=== PATIENT | male | born 1950 ===

== ENCOUNTER 2016-05-28 07:01 | Emergency (ER) | payer OTHER ==
[2016-05-28 07:02] VITALS: BMI 28.3
[2016-05-28 07:30] VITALS: RESP 18
--- NOTE | 2016-05-28 07:52 | ED PDOC ---
Arrival/HPI - General Chief Complaint: Lower Extremity Problem/Injury Time Seen by Provider: 05/28/16 07:43 Historian: Patient - History of Present Illness Narrative History of Present Illness (Text): 05/28/16 07:48 A 66 year old male presents to the emergency department complaining of right knee pain for 7 days. Patient reports his pain began after he turned and heard a "pop". Patient states he has had pain with palpation and ambulation around the anterior and lateral knee since then. He states the same thing happened yesterday which worsened his symptom. Patient denies any fever, nausea, vomiting , diarrhea, abdominal pain, urinary symptoms, chest pain, shortness of breath or any other complaints. PMD: Dr. Llanes Time/Duration: Other (7 days) Symptom Course: Worsening Quality: Other Context: Home Past Medical History - Provider Review Nursing Documentation Reviewed: Yes - Infectious Disease Hx of Infectious Diseases: None - Tetanus Immunization Tetanus Immunization: Unknown - Cardiac Hx Pacemaker: No - Pulmonary Hx Respiratory Disorders: No - Neurological Hx Parkinson's Disease: Yes Hx Vertigo: Yes - HEENT Hx HEENT Disorder: No - Renal Hx Renal Disorder: Yes Hx Kidney Stones: Yes - Endocrine/Metabolic Hx Endocrine Disorders: Yes Hx Diabetes Mellitus Type 2: Yes - Hematological/Oncological Hx Blood Transfusions: No Hx Blood Transfusion Reaction: No - Integumentary Hx Dermatological Disorder: No - Musculoskeletal/Rheumatological Hx Musculoskeletal Disorders: No - Gastrointestinal Hx Gastrointestinal Disorders: No - Genitourinary/Gynecological Hx Genitourinary Disorders: No - Psychiatric Hx Emotional Abuse: No Hx Physical Abuse: No Hx Substance Use: No - Surgical History Hx Musculoskeletal Surgery: Yes (b/l knee's 13 yrs ago) - Anesthesia Hx Anesthesia Reactions: No Hx Malignant Hyperthermia: No - Suicidal Assessment Feels Threatened In Home Enviroment: No Family/Social History - Physician Review Nursing Documentation Reviewed: Yes Family/Social History: No Known Family HX Smoking Status: Never Smoked Hx Alcohol Use: Yes (ON OCCASION) Hx Substance Use: No Allergies/Home Meds Allergies/Adverse Reactions: Allergies Iodine and Iodide Containing Produc Allergy (Severe, Verified 05/28/16 07:30) ANAPHYLAXIS Penicillins Allergy (Severe, Verified 05/28/16 07:30) ANAPHYLAXIS shrimp Allergy (Severe, Verified 05/28/16 07:30) ANAPHYLAXIS lobster Allergy (Severe, Uncoded 05/28/16 07:30) SWELLING Home Medications: Home Meds Medication Instructions Recorded Confirmed Allopurinol [Zyloprim] 300 mg PO DAILY 10/25/14 04/04/15 Rasagiline Mesylate [Azilect] 1 mg PO HS 10/25/14 04/04/15 Metformin HCl [Metformin] 1,000 mg PO BID 12/14/14 04/04/15 Ascorbic Acid [Vitamin C 500 mg 500 mg PO DAILY 04/03/15 04/04/15 Tab] Cholecalciferol [Vitamin D 1000 IU] 1,000 mg PO DAILY 04/03/15 04/04/15 Cyanocobalamin [Vitamin B12 100 100 mcg PO DAILY 04/03/15 04/04/15 mcg Tab] Omeprazole 40 mg PO QAM 04/03/15 04/04/15 Mesalamine [Canasa] 1,000 mg [place] HS 04/04/15 04/04/15 Physical Exam - Physical Exam Narrative Physical Exam (Text): - Review of Systems Constitutional: Normal. absent: Fatigue, Weight Change, Fevers Eyes: Normal ENT: Normal Respiratory: Normal absent: SOB, Cough, Sputum Cardiovascular: Normal absent: Chest pain, Palpitations, Syncope Gastrointestinal: Normal absent: Abdominal pain, Diarrhea, Nausea, Vomiting Genitourinary: Normal. absent: Dysuria, Frequency, Hematuria Musculoskeletal: (+) Right knee pain absent: Arthralgias, Back Pain, Neck Pain Skin: Normal Neurological: Normal absent: Focal Weakness Endocrine: Normal Hemo/Lymphatic: Normal Psychiatric: Normal - Physical exam Patient appears age appropriate, speaking full sentences without difficulty - Systems Exam Head: Present: Atraumatic, Normocephalic Pupils: Present: PERRL Extraocular Muscles: Present: EOMI Conjunctiva: Present: Normal Mouth: Present: Moist Mucous Membranes Neck: Present: Normal Range of Motion. No: MIDLINE TENDERNESS, Paraspinal Tenderness Respiratory/Chest: Present: Clear to Auscultation, Good Air Exchange. No: Respiratory Distress, Accessory Muscle Use, Tachypneic Cardiovascular: Present: Regular Rate and Rhythm, Normal S1, S2, Peripheral Pulses Present. No: Murmurs Abdomen: Present: Normal Bowel Sounds, No: Tenderness, Peritoneal Signs, Rebound, Guarding, Distention Back: Present: Normal Inspection. No: Midline Tenderness, Paraspinal Tenderness Upper Extremity: Present: Normal Inspection. No: Cyanosis, Edema Lower Extremity: Present: Patient is ambulating, Tenderness over the patella, Negative anterior and posterior drawer test. No: Edema, Right knee swelling, Lower extremity asymmetry, Suspicion for DVT, Thigh tenderness, Calf tenderness Neurological: Present: GCS=15, Speech Normal, cranial nerves II through XII fully intact with no cerebellar abnormality, neuro-sensory fully intact. No focal neurological deficits. Skin: Present: Warm, Dry, Normal Color. No: Rashes Lymphatic: Present: OX3, NI, NC Psychiatric: Present: Alert, Oriented x 3, Normal Insight, Normal Concentration Vital Signs Reviewed: Yes Vital Signs Temp Pulse Resp BP Pulse Ox 05/28/16 08:55 97.8 F 80 18 118/76 99 05/28/16 07:24 97.4 F L 72 18 150/76 98 Temperature: Afebrile Blood Pressure: Normal Pulse: Regular Respiratory Rate: Normal Appearance: Positive for: Well-Appearing, Non-Toxic, Comfortable Pain Distress: None Mental Status: Positive for: Alert and Oriented X 3 Medical Decision Making ED Course and Treatment: 05/28/16 07:48 Impression: A 66 year old male with right knee pain, worse with palpation and ambulation. On exam, tenderness over patella. No suspicion for DVT. Plan: -- Right knee xray -- Toradol -- Reassess and disposition Progress Notes: 05/28/16 08:43 Front Tender : James Amaya MD PROCEDURE: Right Knee Radiographs. HISTORY: Pain COMPARISON:None. FINDINGS: BONES:Normal. No fracture. JOINTS:Tricompartmental osteoarthritis. No articular erosion. JOINT EFFUSION:None. OTHER FINDINGS:None. IMPRESSION: No acute fracture. Tricompartmental osteoarthritis. had an extensive d/w pt that although xrays are negative for any acute bony abnormality, it is still very important to fu with pmd and ortho specialist for further w/u and testing such as MRI to r/o any ligamentous/tendenous/meniscal injury. Pt verbalized full understanding of above discussion. Pt states he understands to return to the ER right away for new or worsening symptoms or for inability to f/u with PMD or specialist as instructed. Patient states that he fully agrees with and understands discharge instructions. States that he agrees with the plan and disposition. Verbalized and repeated discharge instructions and plan. I have given the patient opportunity to ask any additional questions. - RAD Interpretation Radiology Orders: 05/28/16 07:42 KNEE RIGHT 2 VIEWS (AP & LAT) [RAD] Stat - Medication Orders Current Medication Orders: Discontinued Medications Ketorolac Tromethamine (Toradol) 15 mg IM STAT STA Stop: 05/28/16 07:45 Last Admin: 05/28/16 08:05 Dose: 15 MG IM Administration Charges Document 05/28/16 08:05 [facility] (Rec: 05/28/16 08:05 [id number]) Injection Site MAR Injection Site Left Arm Charges for Administration # of IM Administrations 1 - Scribe Statement The provider has reviewed the documentation as recorded by the Scribe Nora Talavera Provider Scribe Attestation: All medical record entries made by the Scribe were at my direction and personally dictated by me. I have reviewed the chart and agree that the record accurately reflects my personal performance of the history, physical exam, medical decision making, and the department course for this patient. I have also personally directed, reviewed, and agree with the discharge instructions and disposition. Disposition/Present on Arrival - Present on Arrival Any Indicators Present on Arrival: No History of DVT/PE: No History of Uncontrolled Diabetes: No Urinary Catheter: No History of Decub. Ulcer: No History Surgical Site Infection Following: None - Disposition Have Diagnosis and Disposition been Completed?: Yes Diagnosis: Knee pain Disposition: HOME/ ROUTINE Disposition Time: 08:54 Patient Plan: Discharge Condition: GOOD Discharge Instructions (ExitCare): Knee Pain (ED), Arthralgia (ED) Additional Instructions: PLEASE RETURN TO THE EMERGENCY DEPARTMENT FOR NEW OR WORSENING SYMPTOMS. RETURN RIGHT AWAY IF YOU CANNOT FOLLOW UP WITH YOUR PRIMARY CARE DOCTOR, CLINIC, OR SPECIALIST IN 1-2 DAYS. Please take [id number] Motrin or Tylenol for pain Referrals: Maverick Llanes MD [Primary Care Provider] - Follow up with primary Aroldo Lino DO [Staff Provider] - Follow up with primary Patel Carvajal III, MD [Medical Doctor] - Follow up with primary Forms: WORK NOTE
--- NOTE | 2016-05-28 08:41 | RAD ---
PROCEDURE: Right Knee Radiographs. HISTORY: Pain COMPARISON: None. FINDINGS: BONES: Normal. No fracture. JOINTS: Tricompartmental osteoarthritis. No articular erosion. JOINT EFFUSION: None. OTHER FINDINGS: None. IMPRESSION: No acute fracture. Tricompartmental osteoarthritis.
[2016-05-28 09:13] VITALS: BP 118/76; PULSE 80; TEMP 97.8; O2SAT 99
== END 2016-05-28 08:55 | disposition home or self-care (01) ==
LOC: ED 07:01
DX: M25.561 Pain in right knee (principal)
CPT/HCPCS: 73560; 96372; 99283; J1885

== ENCOUNTER 2017-09-03 17:36 | Emergency (ER) | payer OTHER, MEDICARE ==
--- NOTE | 2017-09-03 18:17 | ED PDOC ---
Arrival/HPI - General Historian: Patient, Spouse - History of Present Illness Time/Duration: > week Symptom Onset: Gradual Severity Level: 6 <Silva Thurman - Last Filed: 09/05/17 19:02> <Ino Cleaning - Last Filed: 09/05/17 19:37> - General Chief Complaint: Lower Extremity Problem/Injury Time Seen by Provider: 09/03/17 18:00 - History of Present Illness Narrative History of Present Illness (Text): 09/03/17 18:12 Patient is a 67 year old male with past medical history of Diabetes mellitus, parkinson's disease, gout presents to the Emergency department for right lower extremity pain and swelling. Patient had recent right knee replacement in 2017 and has been going to physical therapy 2x a week. He reports that last week he started to experience right sided ankle pain that radiates to the right calf and swelling that has been progressively getting worse. He states that the pain is 6/10 on the pain scale, intermittent in nature. Worse with ambulation. He has tried taking aleeve and cold compresses with no relief. (Silva Thurman) Past Medical History - Infectious Disease Hx of Infectious Diseases: None - Tetanus Immunization Tetanus Immunization: Unknown - Cardiac Hx Pacemaker: No - Pulmonary Hx Respiratory Disorders: No - Neurological Hx Parkinson's Disease: Yes Hx Vertigo: Yes - HEENT Hx HEENT Disorder: No - Renal Hx Renal Disorder: Yes Hx Kidney Stones: Yes - Endocrine/Metabolic Hx Endocrine Disorders: Yes Hx Diabetes Mellitus Type 2: Yes - Hematological/Oncological Hx Blood Transfusions: No Hx Blood Transfusion Reaction: No - Integumentary Hx Dermatological Disorder: No - Musculoskeletal/Rheumatological Hx Musculoskeletal Disorders: No - Gastrointestinal Hx Gastrointestinal Disorders: No - Genitourinary/Gynecological Hx Genitourinary Disorders: No - Psychiatric Hx Emotional Abuse: No Hx Physical Abuse: No Hx Substance Use: No - Surgical History Hx Musculoskeletal Surgery: Yes (b/l knee's 13 yrs ago) - Anesthesia Hx Anesthesia Reactions: No Hx Malignant Hyperthermia: No - Suicidal Assessment Feels Threatened In Home Enviroment: No <Silva Thurman - Last Filed: 09/05/17 19:02> Family/Social History Family/Social History: Unknown Family HX Smoking Status: Never Smoked Hx Alcohol Use: Yes (ON OCCASION) Hx Substance Use: No <Silva Thurman - Last Filed: 09/05/17 19:02> Allergies/Home Meds <Silva Thurman - Last Filed: 09/05/17 19:02> <Ino Cleaning - Last Filed: 09/05/17 19:37> Allergies/Adverse Reactions: Allergies Iodine and Iodide Containing Produc Allergy (Severe, Verified 05/28/16 07:30) ANAPHYLAXIS Penicillins Allergy (Severe, Verified 05/28/16 07:30) ANAPHYLAXIS shrimp Allergy (Severe, Verified 05/28/16 07:30) ANAPHYLAXIS lobster Allergy (Severe, Uncoded 05/28/16 07:30) SWELLING Home Medications: Home Meds Medication Instructions Recorded Confirmed Allopurinol [Zyloprim] 300 mg PO DAILY 10/25/14 09/03/17 Rasagiline Mesylate [Azilect] 1 mg PO HS 10/25/14 09/03/17 Metformin HCl [Metformin] 1,000 mg PO BID 12/14/14 09/03/17 Ascorbic Acid [Vitamin C 500 mg 500 mg PO DAILY 04/03/15 09/03/17 Tab] Cholecalciferol [Vitamin D 1000 IU] 1,000 mg PO DAILY 04/03/15 09/03/17 Cyanocobalamin [Vitamin B12 100 100 mcg PO DAILY 04/03/15 09/03/17 mcg Tab] Omeprazole 40 mg PO QAM 04/03/15 09/03/17 Mesalamine [Canasa] 1,000 mg [place] HS 04/04/15 09/03/17 Carbidopa/Levodopa [Rytary ER 3 cap PO TID 09/03/17 09/03/17 23.75 mg-95 mg Cap] GlipiZIDE [Glucotrol] 5 mg PO HS 09/03/17 09/03/17 Physical Exam Vital Signs Reviewed: Yes Temperature: Afebrile Blood Pressure: Normal Pulse: Regular Respiratory Rate: Normal Appearance: Positive for: Well-Appearing, Comfortable Pain Distress: Mild Mental Status: Positive for: Alert and Oriented X 3 - Systems Exam Head: Present: Atraumatic, Normocephalic Pupils: Present: PERRL Extroacular Muscles: Present: EOMI Conjunctiva: Present: Normal Mouth: Present: Moist Mucous Membranes Neck: Present: Normal Range of Motion Respiratory/Chest: Present: Clear to Auscultation, Good Air Exchange. No: Respiratory Distress, Accessory Muscle Use Cardiovascular: Present: Regular Rate and Rhythm, Normal S1, S2 Abdomen: Present: Normal Bowel Sounds. No: Tenderness Upper Extremity: Present: Normal Inspection Lower Extremity: Present: NORMAL PULSES, Other (Right lower extremity tenderness , +edema, warm to touch) Skin: Present: Warm, Dry, Normal Color Psychiatric: Present: Alert, Oriented x 3 <Silva Thurman - Last Filed: 09/05/17 19:02> Vital Signs Temp Pulse Resp BP Pulse Ox 09/03/17 21:19 97.8 F 77 18 124/73 99 09/03/17 20:36 97.8 F 77 18 124/73 99 09/03/17 20:27 78 17 135/80 99 09/03/17 18:17 98.7 F 87 18 138/84 99 09/03/17 18:05 97.9 F 83 18 138/84 100 Medical Decision Making <Silva Thurman - Last Filed: 09/05/17 19:02> <Ino Cleaning - Last Filed: 09/05/17 19:37> ED Course and Treatment: 09/03/17 20:50 Pt. was evaluated by me.Past hx. knee surgery undergoing physical therapy began developing discomfort to right posterior lower leg/calf area with questionable swelling suggesting possible DVT.Sent by to undergo Doppler study which is now determined to be normal.On physical exam some mild swelling to soft tissue right knee/non tender.No calf or lower leg swelling.No erythema noted anywhere.Negative Celeste test.Slight calf muscle tenderness with muscle contraction.N/V-intact (Ino Cleaning) - RAD Interpretation Radiology Orders: 09/03/17 18:20 DUPLEX LOWER EXTRM VEIN RIGHT [US] Stat - Medication Orders Current Medication Orders: Discontinued Medications Ibuprofen (Motrin Tab) 400 mg PO STAT STA Stop: 09/03/17 21:01 - PA / FILTER TIP INSPECTOR / Resident Statement PAIGE has reviewed & agrees with the documentation as recorded. PAIGE has examined the patient and agrees with the treatment plan. <Ino Cleaning - Last Filed: 09/05/17 19:37> Disposition/Present on Arrival - Present on Arrival History of DVT/PE: No History of Uncontrolled Diabetes: No Urinary Catheter: No History Surgical Site Infection Following: None <Silva Thurman - Last Filed: 09/05/17 19:02> - Present on Arrival Any Indicators Present on Arrival: No - Disposition Have Diagnosis and Disposition been Completed?: Yes Disposition Time: 20:57 Patient Plan: Discharge <BlackIno hinojosa - Last Filed: 09/05/17 19:37> - Disposition Diagnosis: Muscle strain, lower leg Disposition: HOME/ ROUTINE Condition: GOOD Discharge Instructions (ExitCare): Lower Extremity Muscle Strain (DC) Additional Instructions: Rest the affected area/keep elevated when possible/avoid prolonged standing or physical activity/follow up with your orthopedist this week as scheduled Prescriptions: Naproxen [Naprosyn Tab] 375 mg PO BID PRN #12 tab PRN Reason: Pain, Moderate (4-7) Referrals: Maverick Llanes MD [Primary Care Provider] - Follow up with primary Forms: [employer] (Citizen Of [place])
[2017-09-03 18:30] VITALS: O2SAT 99; BMI 27.4
--- NOTE | 2017-09-03 19:00 | US ---
Date of service: 09/03/2017 PROCEDURE: Right lower extremity venous duplex Doppler. HISTORY: r/o DVT COMPARISON: None available. TECHNIQUE: Common femoral, superficial femoral, popliteal and posterior tibial veins were evaluated. Flow was assessed with color Doppler, compressibility, assessment of phasic flow and augmentation response. FINDINGS: COMMON FEMORAL VEIN: Unremarkable. SUPERFICIAL FEMORAL VEIN: Unremarkable. POPLITEAL VEIN: Unremarkable. POSTERIOR TIBIAL VEIN: Unremarkable. OTHER FINDINGS: None. IMPRESSION: No evidence of deep venous thrombosis in the right lower extremity.
[2017-09-03 20:37] VITALS: BP 124/73; PULSE 77; RESP 18; TEMP 97.8
== END 2017-09-03 21:10 | disposition home or self-care (01) ==
LOC: ED 17:36
DX: S86.911A Strain of unspecified muscle(s) and tendon(s) at lower leg level, right leg, initial encounter (principal); X58.XXXA Exposure to other specified factors, initial encounter; E11.9 Type 2 diabetes mellitus without complications; G20 Parkinson's disease; Z96.651 Presence of right artificial knee joint

== ENCOUNTER 2018-03-19 10:33 | Outpatient (CLI) | payer OTHER, MEDICARE | END 2018-03-19 10:34 | disposition home or self-care (01) | LOC: LAB 10:33 ==

== ENCOUNTER 2018-03-21 11:35 | Outpatient (CLI) | payer OTHER, MEDICARE | END 2018-03-21 11:36 | disposition home or self-care (01) | LOC: LAB 11:35 ==

== ENCOUNTER 2018-05-03 13:47 | Outpatient (CLI) | payer OTHER, MEDICARE | END 2018-05-03 13:48 | disposition home or self-care (01) | LOC: RAD 13:47 ==